=== PATIENT | male | born 1955 | race Caucasian/White ===

== ENCOUNTER 2017-04-14 06:35 | Inpatient (IN) | payer OTHER ==
[2017-04-14] MEDS ORDERED: MIDAZOLAM 1 MG/ML 2 ML INJ (10:07)
[2017-04-14] MEDS ORDERED: PHENYLephrine 10 MG INJ ×2 (10:10→15:11)
[2017-04-14] MEDS ORDERED: LIDOCAINE 2% (SDV) 5 ML INJ (10:10)
[2017-04-14] MEDS ORDERED: SUCCINYLCHOLINE CHLORIDE 100 MG/5 ML SYG IV (10:10)
[2017-04-14] MEDS ORDERED: ROCURONIUM 50 MG INJ (10:10)
[2017-04-14] MEDS ORDERED: PROPOFOL 20 ML (10:10)
[2017-04-14] MEDS ORDERED: BUPIVACAINE 0.5% (SDV) 30 ML INJ (11:04)
[2017-04-14] MEDS ORDERED: LIDOCAINE 1%/EPI 30 ML INJ (11:04)
[2017-04-14] MEDS ORDERED: POLYMYXIN/BACITRACIN 1L IRRIG (11:05)
[2017-04-14] MEDS ORDERED: PHENYLephrine (100 MCG/ML) 5ML SYG (12:17)
[2017-04-14] MEDS ORDERED: CEFAZOLIN 1 GM INJ ×3 (12:17→15:11)
[2017-04-14] MEDS ORDERED: FAMOTIDINE 20 MG INJ (12:42)
[2017-04-14] MEDS ORDERED: ONDANSETRON 4 MG INJ (12:42)
[2017-04-14] MEDS: LIDOCAINE 1%/EPI 30 ML INJ INJ (13:00)
[2017-04-14] MEDS: BUPIVACAINE 0.5% (MPF) 30 ML INJ EPI (13:02)
[2017-04-14] MEDS: CEFAZOLIN 1 GM INJ IVPB (13:02)
[2017-04-14] MEDS: GELATIN SIZE 100 SPONGE (15:26)
[2017-04-14] MEDS: HEMOSTATIC MATRIX/ THROMBIN 1 EA SYG ZFS ×2 (15:26→16:32)
[2017-04-14] MEDS: THROMBIN 5000 UNIT VIAL (15:26)
[2017-04-14] MEDS ORDERED: FUROSEMIDE 20 MG INJ (17:40)
[2017-04-14] MEDS ORDERED: BISACODYL 10 MG SUPP PR (18:30)
[2017-04-14] MEDS ORDERED: ONDANSETRON 4 MG INJ IV ×2 (18:30)
[2017-04-14] MEDS ORDERED: DIPHENHYDRAMINE 50 MG INJ IV (18:30)
[2017-04-14] MEDS ORDERED: LABETALOL HCL 20MG INJ IV (18:30)
[2017-04-14] MEDS ORDERED: NALOXONE (0.4 MG/ML) INJ IV (18:30)
[2017-04-14] MEDS ORDERED: METOCLOPRAMIDE 10 MG INJ IV (18:30)
[2017-04-14] MEDS ORDERED: HYDROmorphONE 0.5 MG/0.5 ML SYG IV (18:30)
[2017-04-14] MEDS ORDERED: CYCLOBENZAPRINE 10 MG TAB PO (18:30)
[2017-04-14] MEDS: HYDROmorphONE (0.2 MG/ML) 10ML SYG IV ×3 (18:45→19:18)
[2017-04-14] MEDS: hydrALAzine 20 MG INJ IV ×3 (19:07→22:19)
[2017-04-14] MEDS ORDERED: CEFAZOLIN 2 GM/50 ML (PMX) 50 ML IVPB (19:13)
[2017-04-14] MEDS: CEFAZOLIN 2 GM/50 ML (PMX) 50 ML IVPB (19:15)
[2017-04-14] MEDS ORDERED: hydrALAzine 20 MG INJ IV ×2 (19:30→22:00)
[2017-04-14 19:53] LABS: ADD MAN DIFF? NO
[2017-04-14 19:56] LABS: BASOPHIL # 0.1 10^3/ul (0.0-0.1); BASOPHILS % 0.3 % (0.0-2.0); EOSINOPHILS % 0.1 % (0.0-7.0); HEMATOCRIT 36.6 % (42.0-52.0); HEMOGLOBIN 12.5 g/dl (14.0-18.0); LYMPHOCYTES # 1.2 10^3/ul (0.8-2.9); LYMPHOCYTES % 6.4 % (15.0-51.0); MEAN CORPUSCULAR HEMOGLOBIN 29.6 pg (29.0-33.0); MEAN CORPUSCULAR HGB CONC 34.2 g/dl (32.0-37.0); MEAN CORPUSCULAR VOLUME 86.5 fl (82.0-101.0); MEAN PLATELET VOLUME 11.4 fl (7.4-10.4); MONOCYTE # 0.7 10^3/ul (0.3-0.9); MONOCYTES % 3.8 % (0.0-11.0); NEUTROPHIL # 17.3 10^3/ul (1.6-7.5); NEUTROPHILS % 88.7 % (39.0-77.0); PLATELET COUNT 250 10^3/UL (140-415); RED BLOOD COUNT 4.23 10^6/ul (4.70-6.10); RED CELL DISTRIBUTION WIDTH 13.1 % (11.5-14.5)
[2017-04-14] MEDS ORDERED: DEXTROSE 50% 50 ML SYRINGE IV ×2 (20:00)
[2017-04-14] MEDS ORDERED: GLUCAGON 1 MG INJ IM (20:00)
[2017-04-14] MEDS ORDERED: GLUCOSE GEL 15 GRAM TUBE BUCCAL (20:00)
[2017-04-14] MEDS ORDERED: GLUCOSE GEL 15 GRAM TUBE PO ×2 (20:00)
[2017-04-14] MEDS: 1/2 NS + KCL 20 MEQ 1,000 ML IV (20:03)
[2017-04-14 20:06] LABS: WHITE BLOOD COUNT 19.4 10^3/ul (4.8-10.8)
[2017-04-14] MEDS: LISINOPRIL 20 MG TAB PO ×2 (20:08→22:19)
[2017-04-14 20:17] LABS: ANION GAP 20 (8-16); CARBON DIOXIDE 24 mmol/L (21-31); CHLORIDE 102 mmol/L (97-110); GLUCOSE 225 mg/dl (70-220)
[2017-04-14 20:22] LABS: BLOOD UREA NITROGEN 20 mg/dl (7-20); CREATININE 1.08 mg/dl (0.61-1.24); POTASSIUM 4.3 mmol/L (3.5-5.1); SODIUM 142 mmol/L (135-144)
[2017-04-14 20:23] LABS: CALCIUM 8.3 mg/dl (8.4-10.2)
[2017-04-14] MEDS ORDERED: ACETAMINOPHEN 325 MG TAB PO (22:00)
[2017-04-14] MEDS: ATORVASTATIN 10 MG TAB PO (22:18)
[2017-04-14] MEDS: DOCUSATE SODIUM 100 MG CAP PO (22:18)
[2017-04-14] MEDS: INSULIN ASPART [NOVOLOG] 3 ML PEN SC (22:21)
[2017-04-15] MEDS: ACCU-CHEK XX (02:00)
[2017-04-15] MEDS: CEFAZOLIN 2 GM/50 ML (PMX) 50 ML IVPB ×2 (03:35→12:10)
[2017-04-15] MEDS: morphine 2 MG INJ IV (03:36)
[2017-04-15] MEDS: 1/2 NS + KCL 20 MEQ 1,000 ML IV ×2 (04:39→08:16)
[2017-04-15] MEDS: PANTOPRAZOLE 40 MG INJ IV (06:20)
[2017-04-15 06:52] LABS: ADD MAN DIFF? NO
[2017-04-15 06:56] LABS: BASOPHILS % 0.2 % (0.0-2.0); EOSINOPHILS % 0.1 % (0.0-7.0); HEMATOCRIT 34.1 % (42.0-52.0); HEMOGLOBIN 11.2 g/dl (14.0-18.0); LYMPHOCYTES # 1.2 10^3/ul (0.8-2.9); MEAN CORPUSCULAR HEMOGLOBIN 28.5 pg (29.0-33.0); MEAN CORPUSCULAR HGB CONC 32.8 g/dl (32.0-37.0); MEAN CORPUSCULAR VOLUME 86.8 fl (82.0-101.0); MEAN PLATELET VOLUME 11.5 fl (7.4-10.4); MONOCYTE # 1.4 10^3/ul (0.3-0.9); MONOCYTES % 8.4 % (0.0-11.0); NEUTROPHIL # 13.8 10^3/ul (1.6-7.5); NEUTROPHILS % 83.6 % (39.0-77.0); PLATELET COUNT 209 10^3/UL (140-415); RED BLOOD COUNT 3.93 10^6/ul (4.70-6.10); RED CELL DISTRIBUTION WIDTH 13.2 % (11.5-14.5)
[2017-04-15 06:56] LABS: WHITE BLOOD COUNT 16.5 10^3/ul (4.8-10.8)
[2017-04-15 07:24] LABS: ALANINE AMINOTRANSFERASE 116 IU/L (13-69); ALBUMIN 3.4 g/dl (3.3-4.9); ALBUMIN/GLOBULIN RATIO 1.13; ALKALINE PHOSPHATASE 60 IU/L (42-121); ANION GAP 15 (8-16); ASPARTATE AMINO TRANSFERASE 342 IU/L (15-46); BILIRUBIN,INDIRECT 0.2 mg/dl (0-1.1); BILIRUBIN,TOTAL 0.2 mg/dl (0.2-1.3); BLOOD UREA NITROGEN 16 mg/dl (7-20); CALCIUM 8.1 mg/dl (8.4-10.2); CARBON DIOXIDE 30 mmol/L (21-31); CHLORIDE 98 mmol/L (97-110); CREATININE 0.94 mg/dl (0.61-1.24); GLUCOSE 154 mg/dl (70-220); MAGNESIUM 1.4 mg/dl (1.7-2.5); PHOSPHORUS 3.8 mg/dl (2.5-4.9); POTASSIUM 4.1 mmol/L (3.5-5.1); SODIUM 139 mmol/L (135-144); TOTAL PROTEIN 6.4 g/dl (6.1-8.1)
[2017-04-15] MEDS: INSULIN ASPART [NOVOLOG] 3 ML PEN SC ×4 (07:55→20:49)
[2017-04-15] MEDS: metFORMIN 500 MG TAB PO ×2 (08:15→17:34)
[2017-04-15] MEDS: HYDROCHLOROTHIAZIDE 25 MG TAB PO (08:15)
[2017-04-15] MEDS: DOCUSATE SODIUM 100 MG CAP PO ×2 (08:15→20:49)
[2017-04-15] MEDS: LISINOPRIL 20 MG TAB PO (08:16)
[2017-04-15] MEDS ORDERED: LISINOPRIL 20 MG TAB PO (09:00)
[2017-04-15] MEDS ORDERED: NON-FORMULARY/PATIENT OWN MED (Omeprazole* 40 MG) PO (09:00)
[2017-04-15 09:56] LABS: HEMOGLOBIN A1C 7.2 % (0-5.9)
[2017-04-15] MEDS: DEXAMETHASONE 4 MG/ML 1 ML INJ IV (12:09)
[2017-04-15] MEDS: MAGNESIUM OXIDE 400 MG TAB PO (12:09)
[2017-04-15] MEDS: HYDROCODONE/APAP (5/325) TAB PO ×2 (12:29→20:50)
[2017-04-15] MEDS: LIDOCAINE 5% PATCH TD (16:30)
[2017-04-15] MEDS: ATORVASTATIN 10 MG TAB PO (20:49)
[2017-04-16] MEDS: 1/2 NS + KCL 20 MEQ 1,000 ML IV ×2 (01:30→08:17)
[2017-04-16] MEDS: ACCU-CHEK XX (02:00)
[2017-04-16] MEDS: PANTOPRAZOLE 40 MG INJ IV (06:52)
[2017-04-16 07:27] LABS: ALANINE AMINOTRANSFERASE 118 IU/L (13-69); ALBUMIN/GLOBULIN RATIO 1.37; ALKALINE PHOSPHATASE 72 IU/L (42-121); ANION GAP 15 (8-16); ASPARTATE AMINO TRANSFERASE 349 IU/L (15-46); BILIRUBIN,INDIRECT 0.4 mg/dl (0-1.1); BILIRUBIN,TOTAL 0.4 mg/dl (0.2-1.3); BLOOD UREA NITROGEN 13 mg/dl (7-20); CALCIUM 8.8 mg/dl (8.4-10.2); CARBON DIOXIDE 30 mmol/L (21-31); CHLORIDE 97 mmol/L (97-110); GLUCOSE 152 mg/dl (70-220); MAGNESIUM 1.9 mg/dl (1.7-2.5); POTASSIUM 4.4 mmol/L (3.5-5.1); SODIUM 138 mmol/L (135-144); TOTAL PROTEIN 6.9 g/dl (6.1-8.1)
[2017-04-16] MEDS: HYDROCHLOROTHIAZIDE 25 MG TAB PO (08:16)
[2017-04-16] MEDS: DOCUSATE SODIUM 100 MG CAP PO (08:16)
[2017-04-16] MEDS: GUAIFENESIN LA 600 MG TABSR PO (08:16)
[2017-04-16] MEDS: metFORMIN 500 MG TAB PO (08:16)
[2017-04-16] MEDS: LISINOPRIL 20 MG TAB PO (08:17)
[2017-04-16] MEDS: LIDOCAINE 5% PATCH TD (08:17)
[2017-04-16] MEDS: INSULIN ASPART [NOVOLOG] 3 ML PEN SC (08:19)
== END 2017-04-16 11:55 | disposition home or self-care (01) | DRG 473 ==
LOC: REC 06:35 → TEL 20:31
PROVIDERS: Neurological Surgery
PROC: 0RG20A0 Fusion of 2 or more Cervical Vertebral Joints with Interbody Fusion Device, Anterior Approach, Anterior Column, Open Approach (ICD-10-PCS; principal; 2017-04-14 10:30)
PROC: 0RT30ZZ Resection of Cervical Vertebral Disc, Open Approach (ICD-10-PCS; 2017-04-14 10:30)
PROC: 4A11X4G Monitoring of Peripheral Nervous Electrical Activity, Intraoperative, External Approach (ICD-10-PCS; 2017-04-14 10:30)
DX: M50.021 Cervical disc disorder at C4-C5 level with myelopathy (principal); E66.01 Morbid (severe) obesity due to excess calories; M48.02 Spinal stenosis, cervical region; M50.121 Cervical disc disorder at C4-C5 level with radiculopathy; I10 Essential (primary) hypertension; E11.9 Type 2 diabetes mellitus without complications; K21.9 Gastro-esophageal reflux disease without esophagitis; I25.10 Atherosclerotic heart disease of native coronary artery without angina pectoris; R74.0 Nonspecific elevation of levels of transaminase and lactic acid dehydrogenase [LDH]; Z68.39 Body mass index [BMI] 39.0-39.9, adult
CPT/HCPCS: 72040; 76705; 80048; 80053; 82962; 83036; 83735; 84100; 85025; 86850; 86900; 86901; 86920; 97116; 97162; J1940